=== PATIENT | male | born 1960 | race Caucasian/White ===

== ENCOUNTER 2018-11-05 18:26 | Inpatient (IN) | payer MEDICAID, OTHER ==
[~2018-11-05] VITALS: Ht 165.1 cm; Wt 92.1 kg
[~2018-11-05 18:26] MED LIST: ASPI325T30 PO; BENA40TA56 PO; BENAZEPRIL PO; METFORMIN PO; MTF1000T PO; NOVO7030 SC; PRAVASTATIN PO; SIMV20TA21 PO; SS SC
[2018-11-05 21:35] VITALS: BP 133/73; PULSE 70; RESP 18
[2018-11-05 22:21] VITALS: Ht 165.1 cm; Wt 92.1 kg
[2018-11-05] MEDS ORDERED: DEXTROSE 50% 50 ML SYRINGE IV PRN ×2 (23:45)
[2018-11-05] MEDS ORDERED: GLUCOSE GEL 15 GRAM TUBE PO PRN ×2 (23:45)
[2018-11-05] MEDS ORDERED: GLUCAGON 1 MG INJ IM PRN (23:45)
[2018-11-05] MEDS ORDERED: GLUCOSE GEL 15 GRAM TUBE BUCCAL PRN (23:45)
[2018-11-05] MEDS: SOD CHLORIDE 0.9% 1,000 ML IV SCH (23:59)
[2018-11-06] MEDS ORDERED: BISACODYL (EC) 5 MG TAB PO PRN
[2018-11-06] MEDS ORDERED: morphine 2 MG INJ IV PRN
[2018-11-06] MEDS ORDERED: ACETAMINOPHEN 325 MG TAB PO PRN
[2018-11-06] MEDS ORDERED: NACL 0.9% 3 ML SYG IV SCH
[2018-11-06] MEDS ORDERED: ONDANSETRON 4 MG INJ IV PRN
[2018-11-06] MEDS: DOCUSATE SODIUM 100 MG CAP PO SCH ×2 (00:07→12:00)
[2018-11-06] MEDS: HEPARIN 5,000 UNIT/1 ML VIAL SC SCH ×4 (00:08→21:57)
[2018-11-06] MEDS: INSULIN ASPART [NOVOLOG] 3 ML PEN SC SCH ×7 (01:15→21:55)
[2018-11-06 02:00] VITALS: BP 113/73; PULSE 71; RESP 18
[2018-11-06] MEDS: ACCU-CHEK XX SCH (02:00)
[2018-11-06 07:54] VITALS: BP 117/77; PULSE 66; RESP 18
[2018-11-06] MEDS: BENAZEPRIL 40 MG TAB PO SCH (08:17)
[2018-11-06] MEDS ORDERED: ASPIRIN 325 MG TAB PO SCH (09:00)
[2018-11-06] MEDS: ASPIRIN 81 MG TAB PO SCH (09:31)
[2018-11-06] MEDS: SOD CHLORIDE 0.9% 1,000 ML IV SCH (12:07)
[2018-11-06 13:59] VITALS: BP 122/72; PULSE 59; RESP 18
[2018-11-06 20:00] VITALS: BP 119/72; PULSE 66; RESP 18
[2018-11-06] MEDS ORDERED: INSULIN GLARGINE [LANTus] (100 UNITS/ML) SYG SC SCH (20:00)
[2018-11-06] MEDS ORDERED: ATORVASTATIN 10 MG TAB PO SCH (21:00)
[2018-11-07] MEDS: SOD CHLORIDE 0.9% 1,000 ML IV SCH (01:42)
[2018-11-07] MEDS: DOCUSATE SODIUM 100 MG CAP PO SCH ×2 (01:42→12:00)
[2018-11-07 02:00] VITALS: BP 129/78; PULSE 54; RESP 17
[2018-11-07] MEDS: ACCU-CHEK XX SCH (02:00)
[2018-11-07] MEDS: HEPARIN 5,000 UNIT/1 ML VIAL SC SCH (05:53)
[2018-11-07 08:05] VITALS: BP 135/83; PULSE 56; RESP 19
[2018-11-07] MEDS: INSULIN ASPART [NOVOLOG] 3 ML PEN SC SCH ×4 (09:42→12:05)
[2018-11-07] MEDS: BENAZEPRIL 40 MG TAB PO SCH (09:43)
[2018-11-07] MEDS: ASPIRIN 81 MG TAB PO SCH (09:43)
== END 2018-11-07 15:20 | disposition home or self-care (01) | DRG 641 ==
LOC: PP2 21:28 → INTOOBSV 21:28 → OBSVTOIN 11-06 18:07
PROVIDERS: ADMIT Pediatrics Pediatric Critical Care Medicine; ATTEND Internal Medicine
DX: E86.0 Dehydration (principal); K52.9 Noninfective gastroenteritis and colitis, unspecified; E11.9 Type 2 diabetes mellitus without complications; I10 Essential (primary) hypertension; E78.5 Hyperlipidemia, unspecified; F17.200 Nicotine dependence, unspecified, uncomplicated; E66.9 Obesity, unspecified; Z68.33 Body mass index [BMI] 33.0-33.9, adult; Z79.4 Long term (current) use of insulin; Z79.82 Long term (current) use of aspirin
CPT/HCPCS: 80053; 80061; 82962; 83036; 83735; 84443; 85025; 85610; 85730; G0378; J1644; J1815; J7030